=== PATIENT | male | born 1965 | race Caucasian/White ===

== ENCOUNTER 2024-12-05 19:17 | Inpatient (IN) | payer BC, SELFPAY ==
[2024-12-05] VITALS (12 sets, daily range): BP systolic 119–165; BP diastolic 67–102; PULSE 59–78; RESP 12–22; TEMP 37; O2SAT 91–95; BMI 33.9
--- NOTE | 2024-12-05 | IR_ITS ---
APPROVED REPORT Patient Location: Outpatient PROCEDURES Left heart catheterization Left ventriculogram Selective coronary angiogram Drug-eluting stent deployment to the mid LAD INDICATION Acute anterior ST elevation myocardial infarction, Coronary artery disease Informed consent was obtained prior to the procedure. COMPLICATIONS none Estimated Blood Loss: less than 10ml TECHNIQUE One percent lidocaine used to anesthetize the right anterior aspect of the wrist. The right radial artery was accessed via the Seldinger technique. A 6 [place] sheath was placed in the right radial artery. 2.5 mg of Verapamil, 800 mcg of nitroglycerin, 1mg Lidocaine and 5000 U Heparin were given through the arterial sheath. JL 3 guide catheter was advanced to the proximal radial artery however the wire would not pass due to tortuosity. Retrograde angiography demonstrated significant tortuosity in the vessel making traversing the tortuosity and possible. Because of this 1% lidocaine was used anesthetize right groin the right femoral artery 6 via Salinger technique. A 6 [place] sheath is placed in the right femoral artery. A JL 4 guide catheter was placed in left main artery and angiography demonstrated an occluded mid LAD. A choice floppy wire was placed distally and a 2.25 x 34 mm Evaristo frontier stent was deployed at 20 tesfaye reducing the stenosis to 0%. A 2.5 x 15 mm noncompliant balloon was advanced to the proximal portion of the stent and deployed at 20 tesfaye to post dilate. The balloon was then advanced to half the length and then deployed at 20 tesfaye to further post dilate. REJI 0 flow was present at the beginning the procedure with REJI-3 flow at the end of procedure. Following this a JR4 catheter was used to perform right coronary angiography as well as left heart catheterization and left ventriculogram. At the end of the procedure the apparatus was removed the groin is reprepped closure change sheath was removed and hemostasis was achieved using Perclose device patient was transferred to the postop putting in stable condition ANGIOGRAPHIC RESULTS The left main artery Normal The left anterior descending artery Has proximal tendon 20% stenosis and occluded at mid vessel following the revascularization the LAD was widely patent into the apex. First diagonal artery is medium in size and has an ostial proximal 50 to 60% stenosis The circumflex artery co-dominant with proximal 20% stenoses with additional 20% stenosis in the first and second obtuse marginal The right coronary artery Is codominant has diffuse mild to moderate vascular ectasia with no stenosis greater than 10 to 20% The WHITNEY ventriculogram reveals Dilated ventricle mid anterior apical hypokinesis estimate ejection fraction 35 to 40% The left ventricular end-diastolic pressure 15 mmHg IMPRESSION Acute anterior ST elevation myocardial infarction above the mid LAD with successful stenting reducing lesion to 0% with 1 drug-eluting stent Dilated ventricle with regional wall motion abnormality Normal LVEDP PLAN 1. Brilinta and aspirin 2. Start Entresto followed by carvedilol 3. Start high intensity statin with a goal LDL less than 55 4. Supportive care 5. Continuous telemetry of the next 48 hours 6. Official echocardiogram Sunday Electronically signed by : Shekhar Luu MD 12/05/2024 19:25:28
--- NOTE | 2024-12-05 19:50 | PC.NURSE ---
Patient arrived on unit [address]
[2024-12-05 21:46] LABS: Basophils # 0.1 K/mm3 (0-0.2); Basophils % 0.5 % (0.1-2.0); Eosinophils % 0.2 % (0.1-12.0); Hematocrit 40.2 % (42.0-52.0); Hemoglobin 13.1 g/dL (14.1-18.0); Lymphocytes # 1.4 K/mm3 (0.7-4.5); Lymphocytes % 10.7 % (10-50); Mean Corpuscular HGB Conc 32.6 g/dL (31.8-35.4); Mean Corpuscular Volume 88.9 fl (80-94); Mean Platelet Volume 10.7 fl (7.4-10.4); Monocytes # 0.5 K/mm3 (0.1-1.0); Monocytes % 4.1 % (1.7-9.3); Neutrophils # 10.7 K/mm3 (1.8-7.8); Neutrophils % 83.7 % (37.0-80.0); Platelet Count 266 K/mm3 (142-424); Red Blood Count 4.52 M/mm3 (4.60-6.20); Red Cell Distribution Width 14.5 % (11.5-17.5); White Blood Count 12.8 K/mm3 (4.8-10.8)
[2024-12-05] MEDS: ATORVASTATIN 40MG TABLET 40 MG PO (21:47)
[2024-12-05] MEDS: humaLOG 100 UNITS/ML 10ML VIAL (SSI) SQ (21:47)
[2024-12-05] MEDS: PANTOPRAZOLE 40MG TABLET 40 MG PO (21:47)
[2024-12-05 22:02] LABS: Chloride 102 mmol/L (98-107); Sodium 136 mmol/L (136-145)
[2024-12-05 22:03] LABS: Potassium 4.3 mmoL/L (3.5-5.1)
[2024-12-05 22:05] LABS: Blood Urea Nitrogen 15 mg/dl (9-20); Creatinine Clearance Estimated 206 mL/min (50-200); Estimated Glomerular Filt Rate 139 ml/min (>60); GFR (African American) 168 ML/MIN (>60)
[2024-12-05 22:06] LABS: Anion Gap 8.3 mEq/L (5-15); Calcium 8.8 mg/dl (8.4-10.2); Carbon Dioxide 30 mmol/L (22.0-30.0); Glucose 228 mg/dl (74-100)
--- NOTE | 2024-12-05 22:55 | P.HP_ITS ---
History of Present Illness *Admission Date: 12/05/24 *Reason for visit:: Chest pain/STEMI *History of present illness: This is a 59-year-old male with past medical history of hypertension and diabetes who presented as a transfer from [facility] for STEMI. Patient reported midsternal chest pain that started while he was walking through [facility]. States that he went home and had brief relief in pain with sudden increase in pain which brought him to the emergency department at [facility]. He reports a midsternal pressure in his chest that was nonradiating. States he has had episode of this previously that self abated. Does not have a history of any cardiac stents. Has been compliant with his home pioglitazone, metoprolol and amlodipine He underwent heart catheterization and underwent successful stenting of the mid LAD with 1 EVELYNE. Post cath, stable with reduction in pain to a 1 out of 10. He is admitted post cath for optimization. [facility] Disclaimer: The information contained in this section may have been updated after the patient was seen, as this information can be updated by other users. Medical History (Updated 12/05/24 @ 23:06 by EMIL Baeza) Diabetes type 2 Hypertension Surgical History (Updated 12/05/24 @ 20:35 by Misty Castelan RN) History of shoulder surgery History of hernia repair History of cholecystectomy Social History (Updated 12/05/24 @ 23:08 by EMIL Baeza) Smoking Status: Current every day smoker tobacco type: cigarettes packs per day: 1 years smoked: 7 alcohol intake: never current occupational status: employed Travel in the last 8 weeks: None Contact w/someone who lives/traveled outside [place] past 30 days?: No Exposure to someone with infectious disease in past 14 days?: No Do you have a fever (greater than 100.4 F or 38 C)?: No Have you tested positive for COVID-19: No Exposed to someone with COVID-19 in past 14 days?: No Do you have a sore throat?: No Do you have a cough?: No Do you have any weakness?: No Are you experiencing any nausea/vomitting?: No Do you have any diarrhea?: No Are you experiencing any unusual bleeding?: No Do you have any muscle aches/pain?: No Do you have any abdominal pain?: No Are you experiencing loss of taste or smell?: No Other Medical History Have you received the Flu Vaccine for this season: No Have you received the Pneumonia Vaccine: No Review of Systems Review of Systems Review of systems:: pertinent systems reviewed and negative unless documented below Review of systems (narrative): Negative except for HPI Meds Home Medications and Allergies Home Medications ?Medication ?Instructions ?Recorded ?Confirmed ?Type amlodipine 5 mg tablet 5 mg PO DAILY 12/05/24 12/06/24 History metoprolol tartrate 50 mg tablet 50 mg PO BID 12/05/24 12/06/24 History omeprazole 40 mg capsule,delayed 40 mg PO DAILY 12/05/24 12/06/24 History release pioglitazone 15 mg tablet 15 mg PO DAILYDM 12/05/24 12/06/24 History trazodone 50 mg tablet 100 mg PO HS 12/05/24 12/06/24 History New Prescriptions to Start Prescriptions: Allergies Allergy/AdvReac Type Severity Reaction Status Date / Time No Known Allergies Allergy Verified 12/05/24 18:16 Exam Data for Last 24 hours Vital signs and Labs for Last 24 Hours: Temp Pulse Resp BP Pulse Ox O2 Del Method 98.6 F 78 18 165/102 H 94 L Room Air 12/05/24 19:23 12/05/24 22:25 12/05/24 22:25 12/05/24 22:25 12/05/24 22:25 12/05/24 22:43 Laboratory Results - last 24 hr 12/05/24 21:35: WBC 12.8 H, RBC 4.52 L, Hgb 13.1 L, Hct 40.2 L, MCV 88.9, MCH 29.0, MCHC 32.6, RDW 14.5, Plt Count 266, MPV 10.7 H, Neut % (Auto) 83.7 H, Lymph % (Auto) 10.7, [place] % (Auto) 4.1, Eos % (Auto) 0.2, Baso % (Auto) 0.5, Neut # (Auto) 10.7 H, Lymph # (Auto) 1.4, [place] # (Auto) 0.5, Eos # (Auto) 0.0, Baso # (Auto) 0.1, Sodium 136, Potassium 4.3, Chloride 102, Carbon Dioxide 30, Anion Gap 8.3, BUN 15, Creatinine 0.60 L, Estimated Creat Clear 206, Estimated GFR 139, Est GFR ( Amer) 168, Glucose 228 H, Calcium 8.8 I & O for Last 24 hours: Intake & Output 12/02/24 12/03/24 12/04/24 12/05/24 23:59 23:59 23:59 23:59 Output Total 1200 / 1200 Balance -1200 / -1200 Weight 107.275 kg Constitutional Constitutional: no acute distress *Routine HEENT Exam Head: Present normocephalic Eye: Present EOMI and PERRL ENT: Present mucous membranes moist *Routine Neck Exam Neck: Present supple; Absent lymphadenopathy *Routine Respiratory Exam Respiratory: Present CTA bilaterally *Routine Cardiovascular Exam Cardiovascular: Present RRR *Routine Abdominal Exam Abdominal: Present soft and normoactive bowel sounds; Absent tenderness *Routine Rectal Exam Rectal:: deferred *Routine Genitalia Exam Genitalia:: deferred *Routine Extremities Exam Extremities: Absent cyanosis, clubbing or edema *Routine Skin Exam Skin: Present warm; Absent rash Comments: Right groin cath site without bleeding *Routine Neurological Exam Neurological: Present alert and oriented X3 Assessment and Plan *Assessment and plan (1) CAD (coronary artery disease): Status: Acute Category: Medical Code(s): I25.10 - Atherosclerotic heart disease of [place] coronary artery without angina pectoris (2) Diabetes: Status: Acute Category: Medical Code(s): E11.9 - Type 2 diabetes mellitus without complications Plan Presented as transfer from [facility] due to chest pain and STEMI. Case was discussed with cardiology, request admission for 48-hour management after cath. Medicine agreed to admit. #CAD #STEMI Underwent successful PCI with EVELYNE x 1 to LAD Continue Brilinta and aspirin Start Entresto followed by carvedilol. Patient on metoprolol at this time so we will continue metoprolol and verify with cardiology Obtain echocardiogram on Sunday morning Monitor cath site for bleeding Initiate high statin medication, lipid panel in a.m. #DM 2 Continue sliding scale insulin in the acute phase #Hypertension Continue home medications
[2024-12-06] VITALS (31 sets, daily range): BP systolic 131–173; BP diastolic 71–96; PULSE 57–94; RESP 13–24; TEMP 36.6–37; O2SAT 90–97
--- NOTE | 2024-12-06 01:55 | ECG_ITS ---
APPROVED REPORT Exam: Resting ECG HR:67 bpm ECG Measurements Heart Rate 67 AXES MI 160 P 51 QRSd 93 QRS 76 QT 382 T 29 QTc 397 Conclusion SINUS RHYTHM LOW QRS VOLTAGE IN PRECORDIAL LEADS [QRS DEFLECTION < 1.0 mV IN CHEST LEADS] MARKED ST ELEVATION, CONSIDER ANTERIOR INJURY [MARKED ST ELEVATION W/O NORMALLY INFLECTED T-WAVE IN V2-V5] ACUTE CO UNCONFIRMED REPORT Electronically signed by : Jong Mixon MD 12/06/2024 09:54:58
[2024-12-06] MEDS: HEPARIN SODIUM 5,000 UNIT/ML VIAL 10700 UNIT IV (02:16)
--- NOTE | 2024-12-06 02:19 | IR_ITS ---
APPROVED REPORT Patient Location: Inpatient PROCEDURES Selective coronary angiogram Mechanical thrombectomy to the mid LAD Drug-eluting stent deployment to the mid LAD INDICATION Acute anterior ST elevation myocardial infarction thrombosis Informed consent was obtained prior to the procedure. COMPLICATIONS none Estimated Blood Loss: less than 10ml TECHNIQUE 1% lidocaine used anesthetize right groin the right femoral artery was accessed via the central technique and a 6 [place] sheath is placed in the right femoral artery. A JL 4 guide catheter was used to intubate the left main artery followed by Choice PT extra-support wire placed distally into the LAD. Angiography demonstrated the vessel was thrombosed at mid stent. A penumbra mechanical thrombectomy catheter was advanced and used to aspirate the thrombus restoring REJI-3 flow. Intravascular ultrasound probe was advanced which demonstrated there was slight undersizing in the mid stent which was mild. A 2.5 x 20 mm noncompliant balloon was deployed at 24 tesfaye in the proximal and mid segment. Intravascular ultrasound probe was readvanced which demonstrated there was improvement yet still slight undersizing with a calcified eccentric plaque. A 3 mm x 12 mm Evaristo frontier stent was placed proximal to the 2.5 mm stent and deployed at 20 tesfaye. The balloon was advanced to full length and deployed at 20 tesfaye and then a half length and deployed again at 20 tesfaye. Repeat intravascular ultrasound demonstrated wide patency and expansion of the stent. At this point the apparatus was removed the groin is reprepped closure change sheath was removed and hemostasis was achieved using Perclose device patient was transferred to the postop putting in stable condition ANGIOGRAPHIC RESULTS The left anterior descending artery Thrombosed and mid stent IMPRESSION Acute stent thrombosis in the mid LAD Successful stenting proximal to the for stent with larger stent making smoother transition and then post dilating the previously placed stent with a high-pressure 3 mm balloon PLAN 1. Discontinue Brilinta. Patient was loaded with Effient in the Batch Room Technician 2. Effient 10 mg daily combined with aspirin 81 mg daily 3. Continue supportive care 4. Treatment of hypertension with Entresto and beta-blockers Electronically signed by : Shekhar Luu MD 12/06/2024 03:21:37
[2024-12-06] MEDS: MORPHINE 2MG/ML SYRINGE 1 MG IV (02:20)
[2024-12-06] MEDS: diphenhydrAMINE 50MG/ML VIAL 50 MG IV (02:59)
[2024-12-06] MEDS: MIDAZOLAM HCL 1MG/ML 5ML VIAL 1 MG IV (03:00)
[2024-12-06] MEDS: HEPARIN 1,000 UNITS/500ML NS (CATH LAB) 3000 UNIT IV (03:00)
[2024-12-06] MEDS: LIDOCAINE 1% 10ML MDV 20 ML IJ (03:00)
[2024-12-06] MEDS: FENTANYL 100MCG/2ML VIAL 50 MCG IV (03:00)
[2024-12-06] MEDS: 0.9 % SODIUM CHLORIDE 500 ML 25 ML IV (03:02)
[2024-12-06] MEDS: PRASUGREL 10MG TAB 60 MG PO (03:10)
[2024-12-06] MEDS: HEPARIN 1,000 UNITS/ML 10ML VIAL (CATH LAB) 10000 UNIT IV (03:22)
[2024-12-06] MEDS: IOPAMIDOL-370 (76%);100ML BOTTLE 90 ML IV (03:36)
[2024-12-06 03:40] LABS: CATHL Activated Clotting Time 206 SEC (74-125)
--- NOTE | 2024-12-06 04:42 | PC.NURSE ---
0150 Pt called out stating he was having midsternal chest pain rating it 3/10. Pt telemetry shows change to ST elevation. RT called for STAT EKG. Sonny Chauhan notified and stated she would come to bedside. [address] elevation with acute NV. Sonny Chauhan notified Catherine Luu and he stated to call in cath team and give 100mg/kg of heparin. House notified to call in cath team. Pt taken down to laboratory worker @ 0225 Pt received 1 stent to LAD. Pt back to room @ [id number]
[2024-12-06] MEDS: humaLOG 100 UNITS/ML 10ML VIAL (SSI) SUBCUT ×2 (06:28→11:00)
--- NOTE | 2024-12-06 06:45 | PC.NURSE ---
0400 Pt stated to SRNA that she was nauseous when attempting to set up bath for pt. Sonny Wadsworthis notified and Juni SPRINGER ordered PRN. Medication pulled and when attempting to give to pt, pt states she is not taking any medication at this time. Pt notified medication is IV and it will help with nausea. Pt continues to refuse stating I am not taking any medication from you all and I am not taking a bath. Pt continues to be resistant to care this AM. Call light within reach.
[2024-12-06 07:24] LABS: Chol/HDL Ratio 4.6 (1-3.5); Cholesterol 166 mg/dl (140-200); HDL Cholesterol 36 mg/dl (40-60); Magnesium 1.5 mg/dl (1.6-2.3); Phosphorous 2.1 mg/dl (2.5-4.5); Triglycerides 137 mg/dl (30-150); VLDL Cholesterol 27 mg/dL (0-40)
[2024-12-06 07:35] LABS: Direct LDL Cholesterol 97.32 mg/dL (100-129)
[2024-12-06 08:01] LABS: Hemoglobin A1C 8.5 % (4.0-6.0)
[2024-12-06] MEDS: ASPIRIN EC 81MG TABLET 81 MG PO (08:59)
[2024-12-06] MEDS: PRASUGREL 10MG TAB 10 MG PO (08:59)
[2024-12-06] MEDS: AMLODIPINE 5MG TABLET 5 MG PO (08:59)
[2024-12-06] MEDS: METOPROLOL TARTRATE 50MG TABLET 50 MG PO ×2 (08:59→20:33)
[2024-12-06] MEDS: SACUBITRIL/VALSARTAN 24-26MG TABLET 1 EACH PO ×2 (08:59→20:32)
--- NOTE | 2024-12-06 09:07 | PC.NURSE ---
Incentive spirometer brought to pt's bedside. Pt and pt's spouse educated on it's use and purpose. Pt is sleepy at this time, but was able to show return demonstration of IS use. IS at best, 1000cc's. IS placed at bedside and pt encouraged to do it while awake during every commercial break 5-10 times. Pt and pt's both verbalized understanding
--- NOTE | 2024-12-06 09:09 | PC.NURSE ---
This RN ordered IV mag d/t magnesium level of 1.5 per electrolyte replacement protocol
[2024-12-06] MEDS: MAGNESIUM SULFATE IN WATER 2 GM/50 ML PIGGYBACK IV ×2 (09:20→10:13)
--- NOTE | 2024-12-06 10:36 | HMH.PHAINT1 ---
Pharmacy Intervention Comments: MEDICATION RECONCILIATION COMPLETE USING EXTERNAL PHARMACY FILL HISTORY.
[2024-12-06 11:09] LABS: POC Glucose,Bedside 188 (70-110)
--- NOTE | 2024-12-06 11:25 | P.PN_ITS ---
Subjective *Date: 12/06/24 *Time: 12:03 Interval history: Patient is chest pain-free this morning. Stable on room air. No nausea or vomiting. Overall feels better. Family at bedside. No further ST elevations or V. tach events on telemetry after repeat heart cath. Occasional PVCs Medical Exam Vital signs and Labs for Last 24 Hours: Vital Signs Temp Pulse Pulse Resp BP Pulse Ox O2 Del Method 12/06/24 10:35 72 18 146/89 H 93 L Room Air 12/06/24 10:00 70 18 140/87 95 Room Air 12/06/24 09:35 72 18 139/83 93 L Room Air 12/06/24 09:00 Room Air 12/06/24 09:00 81 17 152/96 H 92 L Room Air 12/06/24 08:35 67 17 146/87 H 97 Room Air 12/06/24 08:00 70 12/06/24 08:00 16 95 Room Air 12/06/24 08:00 98 F 67 21 143/87 H 95 Room Air 12/06/24 07:35 61 20 148/89 H 93 L Room Air 12/06/24 06:35 77 13 140/83 92 L Room Air 12/06/24 06:32 Room Air 12/06/24 06:10 63 12/06/24 06:05 80 18 146/85 H 96 Room Air 12/06/24 05:35 72 15 148/82 H 95 Room Air 12/06/24 05:05 61 15 131/81 93 L Room Air 12/06/24 04:42 Room Air 12/06/24 04:35 82 17 137/85 97 Room Air 12/06/24 04:20 75 22 134/89 93 L Room Air 12/06/24 04:05 98.6 F 68 21 138/88 92 L 12/06/24 03:50 73 24 149/82 H 93 L Room Air 12/06/24 03:35 81 24 135/85 91 L Room Air 12/06/24 03:30 94 H 20 159/91 H 94 L Room Air 12/06/24 03:25 83 20 161/94 H 93 L Room Air 12/06/24 03:23 88 20 161/94 H 93 L Room Air 12/06/24 03:20 81 20 151/91 H 91 L Room Air 12/06/24 02:25 93 L Room Air 12/06/24 02:25 86 22 152/84 H 91 L Room Air 12/06/24 01:25 70 16 173/88 H 92 L Room Air 12/06/24 00:58 Room Air 12/06/24 00:25 98.4 F 67 17 147/90 H 94 L Room Air 12/05/24 23:34 72 12/05/24 23:25 62 13 146/93 H 93 L Room Air 12/05/24 22:43 Room Air 12/05/24 22:25 78 18 165/102 H 94 L Room Air 12/05/24 21:55 66 15 147/89 H 93 L Room Air 12/05/24 21:25 64 14 145/87 H 94 L Room Air 12/05/24 20:55 63 16 131/79 93 L Room Air 12/05/24 20:53 Room Air 12/05/24 20:25 67 18 123/79 93 L Room Air 12/05/24 20:11 67 12/05/24 20:10 69 120/75 91 L Room Air 12/05/24 19:55 62 20 129/75 94 L Room Air 12/05/24 19:40 59 L 22 126/77 95 Room Air 12/05/24 19:23 93 L Room Air 12/05/24 19:23 98.6 F 63 12 119/67 95 Room Air Intake and Output 12/05/24 12/06/24 12/06/24 23:59 07:59 15:59 Intake Total 640 / 640 Output Total 1200 / 1200 1130 / 1705 575 / 1705 Balance -1200 / -1200 -1130 / -1065 65 / -1065 Intake: Intake, Oral Amount 640 / 640 Output: Output, Urine Amount 1200 / 1200 1130 / 1705 575 / 1705 Other: Number of Unmeasured Voids 0 0 Weight 107.275 kg Laboratory Results - last 24 hr 12/05/24 21:35: WBC 12.8 H, RBC 4.52 L, Hgb 13.1 L, Hct 40.2 L, MCV 88.9, MCH 29.0, MCHC 32.6, RDW 14.5, Plt Count 266, MPV 10.7 H, Neut % (Auto) 83.7 H, Lymph % (Auto) 10.7, [place] % (Auto) 4.1, Eos % (Auto) 0.2, Baso % (Auto) 0.5, Neut # (Auto) 10.7 H, Lymph # (Auto) 1.4, [place] # (Auto) 0.5, Eos # (Auto) 0.0, Baso # (Auto) 0.1, Sodium 136, Potassium 4.3, Chloride 102, Carbon Dioxide 30, Anion Gap 8.3, BUN 15, Creatinine 0.60 L, Estimated Creat Clear 206, Estimated GFR 139, Est GFR ( Amer) 168, Glucose 228 H, Calcium 8.8 12/06/24 02:53: Activated Clotting Time 206 H* 12/06/24 06:25: Hemoglobin A1c 8.5 H, Phosphorus 2.1 L, Magnesium 1.5 L, Triglycerides 137, Cholesterol 166, LDL Cholesterol Direct 97.32 L, VLDL Cholesterol 27, HDL Cholesterol 36 L, Cholesterol/HDL Ratio 4.6 H 12/06/24 10:56: POC Glucose 188 H I & O for Labs for Last 24 Hours: Intake & Output 12/03/24 12/04/24 12/05/24 12/06/24 23:59 23:59 23:59 23:59 Intake Total 640 / 640 Output Total 1200 / 1200 1705 / 1705 Balance -1200 / -1200 -1065 / -1065 Weight 107.275 kg Constitutional: Present no acute distress, obese and cooperative Head: Present atraumatic and normocephalic ENT: Present normal exam Respiratory: Present normal respiratory effort; Absent rhonchi, wheezes or crackles Cardiac: Present Reg Rate and Rhythm GI: Present soft and normal bowel sounds; Absent distention or tenderness Extremities: Present normal inspection and full ROM Skin: Present intact; Absent erythema Neuro: Present Grossly Intact, alert, awake, oriented x 3 and moves all extremities Assessment and Plan *Assessment and plan (1) STEMI (ST elevation myocardial infarction): Status: Acute Category: Medical Code(s): I21.3 - ST elevation (STEMI) myocardial infarction of unspecified site (2) CAD (coronary artery disease): Status: Acute Category: Medical Code(s): I25.10 - Atherosclerotic heart disease of [place] coronary artery without angina pectoris (3) Diabetes: Status: Acute Category: Medical Code(s): E11.9 - Type 2 diabetes mellitus without complications (4) Hypertension: Status: Acute Category: Medical Code(s): I10 - Essential (primary) hypertension (5) Obesity (BMI 30.0-34.9): Status: Chronic Category: Medical Code(s): E66.811 - Obesity, class 1 Plan Presented as transfer from [facility] due to chest pain and STEMI. Case was discussed with cardiology, request admission for 48-hour management after cath. Medicine agreed to admit. #CAD #STEMI # Hypertension Underwent successful PCI with EVELYNE x 1 to LAD. Necessitated repeat heart cath as patient was found to have in-stent thrombosis. No further events since second procedure Initiate Jardiance 25 mg daily for diabetes and CHF. -Discussed case with cardiology this morning, continue to monitor on telemetry. Need to monitor for at least 48 hours. Echo Sunday. Will consider further goal-directed therapy at that -Continue DAPT with aspirin 81 mg daily and prasugrel 10 mg daily -LDL 97, goal less than 55. Continue Lipitor 40 mg nightly. Consider increasing to 80 mg prior to discharge -Initiated on Entresto 24/26 mg twice daily. Blood pressure with systolics above 140s, will consider increasing in the next 24 hours if remains elevated after this evening's dose. -Continue metoprolol tartrate 50 mg twice daily. Heart rate well-controlled -Continue home amlodipine 5 mg daily - Obtain echocardiogram on Sunday #DM 2 Continue sliding scale insulin with fingersticks ACHS. Initiate Jardiance 25 mg daily today. A1c elevated 8.5, goal less than 7 - Morning glucose 228 -Kidney function normal with BUN 15, creatinine 0.6, electrolytes stable with potassium 4.3, magnesium 1.5. Replace per protocol. Repeat CBC, CMP, magnesium ordered for the morning Obesity complicates all aspects of his care Full code Heparinized in Marketing Production Specialist, DAPT therapy Diabetic and cardiac diet
[2024-12-06] MEDS: EMPAGLIFLOZIN 25MG TABLET 25 MG PO (12:16)
--- NOTE | 2024-12-06 13:13 | PC.NURSE ---
requested new meal tray for pt, not satisfied with what was brought to him
[2024-12-06 16:12] LABS: POC Glucose,Bedside 142 (70-110)
--- NOTE | 2024-12-06 18:07 | PC.NURSE ---
171- pt had 9 beat run of vtach. This RN went in to check on pt and he was asymptomatic, stating he feels much better than yesterday . Event recorded and printed, MD Recinos made aware of this and of pt's frequent PVC's. NNO
[2024-12-06 20:09] LABS: POC Glucose,Bedside 141 (70-110)
[2024-12-06] MEDS: TRAZODONE 50MG TABLET 50 MG PO (20:33)
[2024-12-06] MEDS: ATORVASTATIN 40MG TABLET 40 MG PO (20:33)
[2024-12-06] MEDS: PANTOPRAZOLE 40MG TABLET 40 MG PO (20:33)
[2024-12-07] VITALS (8 sets, daily range): BP systolic 117–144; BP diastolic 68–85; PULSE 64–84; RESP 14–22; TEMP 36.6–36.9; O2SAT 91–96; BMI 31.9
[2024-12-07 06:29] LABS: POC Glucose,Bedside 117 (70-110)
--- NOTE | 2024-12-07 06:44 | PC.NURSE ---
Pt has not voiced any complaints to staff throughout shift. NSR, No dysrhythmias noted to telemetry during shift. Pt has been ambulating to BR independently, tolerating well. at bedside. Call light within reach.
[2024-12-07 07:55] LABS: Basophils # 0.1 K/mm3 (0-0.2); Basophils % 0.6 % (0.1-2.0); Eosinophils # 0.2 K/mm3 (0.0-0.4); Eosinophils % 1.6 % (0.1-12.0); Hematocrit 43.5 % (42.0-52.0); Hemoglobin 14.4 g/dL (14.1-18.0); Lymphocytes # 2.1 K/mm3 (0.7-4.5); Lymphocytes % 16.2 % (10-50); Mean Corpuscular HGB Conc 33.1 g/dL (31.8-35.4); Mean Corpuscular Hemoglobin 29.1 pg (27.0-31.2); Mean Corpuscular Volume 88.1 fl (80-94); Monocytes # 1.3 K/mm3 (0.1-1.0); Monocytes % 10.1 % (1.7-9.3); Neutrophils # 9.1 K/mm3 (1.8-7.8); Neutrophils % 71.1 % (37.0-80.0); Platelet Count 267 K/mm3 (142-424); Red Blood Count 4.94 M/mm3 (4.60-6.20); Red Cell Distribution Width 14.5 % (11.5-17.5); White Blood Count 12.7 K/mm3 (4.8-10.8)
[2024-12-07 08:06] LABS: Chloride 103 mmol/L (98-107); Potassium 3.9 mmoL/L (3.5-5.1); Sodium 138 mmol/L (136-145)
[2024-12-07 08:08] LABS: Blood Urea Nitrogen 14 mg/dl (9-20); Creatinine Clearance Estimated 146 mL/min (50-200); Estimated Glomerular Filt Rate 100 ml/min (>60); GFR (African American) 121 ML/MIN (>60)
[2024-12-07 08:09] LABS: Alanine Aminotransferase 23 U/L (12-78); Albumin/Globulin Ratio 1.3 (1.1-1.8); Alkaline Phosphatase 123 U/L (38-126); Anion Gap 14.9 mEq/L (5-15); Aspartate Amino Transferase 77 U/L (17-59); Bilirubin,Total 2.2 mg/dl (0.2-1.3); Carbon Dioxide 24 mmol/L (22.0-30.0); Globulin 3.2 g/dL (1.3-3.2); Glucose 115 mg/dl (74-100); Magnesium 2.1 mg/dl (1.6-2.3); Phosphorous 2.9 mg/dl (2.5-4.5); Total Protein,Serum 7.2 g/dl (6.3-8.2)
[2024-12-07] MEDS: METOPROLOL TARTRATE 50MG TABLET 50 MG PO ×2 (09:20→20:55)
[2024-12-07] MEDS: ASPIRIN EC 81MG TABLET 81 MG PO (09:20)
[2024-12-07] MEDS: AMLODIPINE 5MG TABLET 5 MG PO (09:20)
[2024-12-07] MEDS: EMPAGLIFLOZIN 25MG TABLET 25 MG PO (09:20)
[2024-12-07] MEDS: PRASUGREL 10MG TAB 10 MG PO (09:20)
[2024-12-07] MEDS: SACUBITRIL/VALSARTAN 24-26MG TABLET 1 EACH PO ×2 (09:20→20:54)
--- NOTE | 2024-12-07 11:14 | EXP.ACUTE.PN ---
Subjective *Date: 12/07/24 *Time: 11:14 Interval history: Chest pain-free this morning. Stable on room air. No further adverse events on telemetry. Blood pressure better controlled 126/77. Medical Exam Vital signs and Labs for Last 24 Hours: Vital Signs Temp Pulse Pulse Resp BP Pulse Ox O2 Del Method 12/07/24 09:00 Room Air 12/07/24 08:00 75 Room Air 12/07/24 06:39 Room Air 12/07/24 06:00 80 21 126/77 94 L Room Air 12/07/24 05:00 Room Air 12/07/24 04:00 98.4 F 74 22 131/70 94 L Room Air 12/07/24 04:00 80 12/07/24 03:00 Room Air 12/07/24 02:00 64 22 120/71 91 L Room Air 12/07/24 01:00 Room Air 12/07/24 00:00 70 12/07/24 00:00 67 19 117/70 93 L Room Air 12/06/24 22:49 Room Air 12/06/24 22:00 67 23 137/89 90 L Room Air 12/06/24 21:00 Room Air 12/06/24 20:00 98.2 F 57 L 22 148/71 H 92 L Room Air 12/06/24 20:00 93 L Room Air 12/06/24 20:00 80 12/06/24 18:55 Room Air 12/06/24 18:00 69 20 149/88 H 93 L Room Air 12/06/24 17:00 Room Air 12/06/24 16:00 60 12/06/24 16:00 66 19 158/87 H 94 L Room Air 12/06/24 15:00 60 19 149/91 H 93 L Room Air 12/06/24 15:00 Room Air 12/06/24 14:00 76 18 150/93 H 92 L Room Air 12/06/24 13:00 Room Air 12/06/24 12:00 70 12/06/24 12:00 97.9 F 78 17 132/83 92 L Room Air Intake and Output 12/06/24 12/07/24 12/07/24 23:59 07:59 15:59 Intake Total 120 / 1720 Output Total 875 / 4380 550 / 550 0 / 550 Balance -755 / -2660 -550 / -550 0 / -550 Intake: Intake, Oral Amount 120 / 1720 Output: Output, Urine Amount 875 / 4380 550 / 550 0 / 550 Other: Number of Unmeasured Voids 1 Number of Bowel Movements 1 Weight 101.196 kg Patient Weight 12/07/24 23:59 Weight 101.196 kg Laboratory Results - last 24 hr 12/06/24 16:04: POC Glucose 142 H 12/06/24 20:03: POC Glucose 141 H 12/07/24 06:20: WBC 12.7 H, RBC 4.94, Hgb 14.4, Hct 43.5, MCV 88.1, MCH 29.1, MCHC 33.1, RDW 14.5, Plt Count 267, MPV 11.0 H, Neut % (Auto) 71.1, Lymph % (Auto) 16.2, [place] % (Auto) 10.1 H, Eos % (Auto) 1.6, Baso % (Auto) 0.6, Neut # (Auto) 9.1 H, Lymph # (Auto) 2.1, [place] # (Auto) 1.3 H, Eos # (Auto) 0.2, Baso # (Auto) 0.1, Sodium 138, Potassium 3.9, Chloride 103, Carbon Dioxide 24, Anion Gap 14.9, BUN 14, Creatinine 0.80 D, Estimated Creat Clear 146, Estimated GFR 100, Est GFR ( Amer) 121 D, Glucose 115 H D, Calcium 9.0, Phosphorus 2.9 D, Magnesium 2.1 D, Total Bilirubin 2.2 H, AST 77 H, ALT 23, Alkaline Phosphatase 123, Total Protein 7.2, Albumin 4.0, Globulin 3.2, Albumin/Globulin Ratio 1.3 12/07/24 06:22: POC Glucose 117 H I & O for Labs for Last 24 Hours: Intake & Output 12/04/24 12/05/24 12/06/24 12/07/24 23:59 23:59 23:59 23:59 Intake Total 1720 / 1720 Output Total 1200 / 1200 4180 / 4380 550 / 550 Balance -1200 / -1200 -2460 / -2660 -550 / -550 Weight 107.275 kg 101.196 kg Constitutional: Present no acute distress, obese and cooperative Head: Present atraumatic and normocephalic ENT: Present normal exam Respiratory: Present normal respiratory effort; Absent rhonchi, wheezes or crackles Cardiac: Present Reg Rate and Rhythm GI: Present soft and normal bowel sounds; Absent distention or tenderness Extremities: Present normal inspection and full ROM Skin: Present intact; Absent erythema Neuro: Present Grossly Intact, alert, awake, oriented x 3 and moves all extremities Assessment and Plan *Assessment and plan (1) STEMI (ST elevation myocardial infarction): Status: Acute Category: Medical Code(s): I21.3 - ST elevation (STEMI) myocardial infarction of unspecified site (2) CAD (coronary artery disease): Status: Acute Category: Medical Code(s): I25.10 - Atherosclerotic heart disease of [place] coronary artery without angina pectoris (3) Diabetes: Status: Acute Category: Medical Code(s): E11.9 - Type 2 diabetes mellitus without complications (4) Hypertension: Status: Acute Category: Medical Code(s): I10 - Essential (primary) hypertension (5) Obesity (BMI 30.0-34.9): Status: Chronic Category: Medical Code(s): E66.811 - Obesity, class 1 Plan Presented as transfer from [facility] due to chest pain and STEMI. Case was discussed with cardiology, request admission for 48-hour management after cath. Medicine agreed to admit. #CAD #STEMI # Hypertension Underwent successful PCI with EVELYNE x 1 to LAD. Necessitated repeat heart cath as patient was found to have in-stent thrombosis. No further events since second procedure -Continue Jardiance 25 mg daily for diabetes and CHF. -Discussed case with cardiology this morning, continue to monitor on telemetry. Need to monitor for at least 48 hours. Echo Sunday. Will consider further goal-directed therapy at that -Continue DAPT with aspirin 81 mg daily and prasugrel 10 mg daily -LDL 97, goal less than 55. Continue Lipitor 40 mg nightly. Consider increasing to 80 mg prior to discharge -Initiated on Entresto 24/26 mg twice daily. Blood pressure better today 126/77. Will consider titration tomorrow. -Continue metoprolol tartrate 50 mg twice daily. Heart rate well-controlled -Continue home amlodipine 5 mg daily - Obtain echocardiogram on Sunday #DM 2 Continue sliding scale insulin with fingersticks ACHS. Initiate Jardiance 25 mg daily today. A1c elevated 8.5, goal less than 7 - Morning glucose 115 -Kidney function normal with BUN 14, creatinine 0.8, electrolytes stable with potassium 3.9, magnesium 2.1; Replace per protocol. Repeat CBC, CMP, magnesium ordered for the morning Obesity complicates all aspects of his care Full code Heparinized in [employer], DAPT therapy Diabetic and cardiac diet
[2024-12-07 11:25] LABS: POC Glucose,Bedside 113 (70-110)
--- NOTE | 2024-12-07 16:00 | PC.NURSE ---
pt reports burning with movement in r leg. cath site is unchanged. bruising noted to site. pulses strong and palpable through out groin and leg. pt states it does not burn when he is not moving it. spoke with . he will come see pt shortly
[2024-12-07 16:37] LABS: POC Glucose,Bedside 122 (70-110)
[2024-12-07 20:49] LABS: POC Glucose,Bedside 128 (70-110)
[2024-12-07] MEDS: PANTOPRAZOLE 40MG TABLET 40 MG PO (20:54)
[2024-12-07] MEDS: TRAZODONE 50MG TABLET 50 MG PO (20:54)
[2024-12-07] MEDS: ATORVASTATIN 40MG TABLET 40 MG PO (20:54)
[2024-12-08] VITALS: BP 135/78; PULSE 70; PULSE 74; RESP 14; TEMP 36.4; O2SAT 95
[2024-12-08 04:00] VITALS: BP 133/86; PULSE 80; PULSE 90; RESP 16; TEMP 37; O2SAT 94; BMI 31.8
[2024-12-08 06:45] LABS: POC Glucose,Bedside 138 (70-110)
[2024-12-08 06:54] LABS: Basophils # 0.1 K/mm3 (0-0.2); Basophils % 0.8 % (0.1-2.0); Eosinophils # 0.3 K/mm3 (0.0-0.4); Eosinophils % 2.2 % (0.1-12.0); Hematocrit 44.6 % (42.0-52.0); Hemoglobin 14.9 g/dL (14.1-18.0); Lymphocytes % 16.4 % (10-50); Mean Corpuscular HGB Conc 33.4 g/dL (31.8-35.4); Mean Corpuscular Hemoglobin 29.3 pg (27.0-31.2); Mean Corpuscular Volume 87.6 fl (80-94); Mean Platelet Volume 10.6 fl (7.4-10.4); Monocytes # 1.3 K/mm3 (0.1-1.0); Monocytes % 11.1 % (1.7-9.3); Neutrophils # 8.2 K/mm3 (1.8-7.8); Platelet Count 273 K/mm3 (142-424); Red Blood Count 5.09 M/mm3 (4.60-6.20); Red Cell Distribution Width 14.2 % (11.5-17.5); White Blood Count 11.9 K/mm3 (4.8-10.8)
[2024-12-08 07:02] LABS: Alanine Aminotransferase 24 U/L (12-78); Albumin Level 3.9 g/dl (3.5-5.0); Albumin/Globulin Ratio 1.1 (1.1-1.8); Alkaline Phosphatase 130 U/L (38-126); Anion Gap 15.7 mEq/L (5-15); Aspartate Amino Transferase 47 U/L (17-59); Bilirubin,Total 2.3 mg/dl (0.2-1.3); Blood Urea Nitrogen 18 mg/dl (9-20); Calcium 9.2 mg/dl (8.4-10.2); Carbon Dioxide 23 mmol/L (22.0-30.0); Chloride 101 mmol/L (98-107); Creatinine Clearance Estimated 129 mL/min (50-200); Estimated Glomerular Filt Rate 87 ml/min (>60); GFR (African American) 105 ML/MIN (>60); Globulin 3.5 g/dL (1.3-3.2); Glucose 117 mg/dl (74-100); Potassium 3.7 mmoL/L (3.5-5.1); Sodium 136 mmol/L (136-145); Total Protein,Serum 7.4 g/dl (6.3-8.2)
[2024-12-08 07:29] LABS: Magnesium 1.8 mg/dl (1.6-2.3)
[2024-12-08 08:00] VITALS: BP 142/79; PULSE 89; PULSE 90; RESP 16; TEMP 36.4; O2SAT 95
[2024-12-08] MEDS: EMPAGLIFLOZIN 25MG TABLET 25 MG PO (08:40)
[2024-12-08] MEDS: PRASUGREL 10MG TAB 10 MG PO (08:40)
[2024-12-08] MEDS: AMLODIPINE 5MG TABLET 5 MG PO (08:40)
[2024-12-08] MEDS: METOPROLOL TARTRATE 50MG TABLET 50 MG PO (08:40)
[2024-12-08] MEDS: ASPIRIN EC 81MG TABLET 81 MG PO (08:40)
[2024-12-08] MEDS: SACUBITRIL/VALSARTAN 24-26MG TABLET 1 EACH PO (08:40)
--- NOTE | 2024-12-08 08:52 | EXP.DC.SUM ---
General Admission date:: 12/05/24 Discharge date: 12/08/24 HPI HPI HPI: This is a 59-year-old male with past medical history of hypertension and diabetes who presented as a transfer from [facility] for STEMI. Patient reported midsternal chest pain that started while he was walking through [facility]. States that he went home and had brief relief in pain with sudden increase in pain which brought him to the emergency department at [facility]. He reports a midsternal pressure in his chest that was nonradiating. States he has had episode of this previously that self abated. Does not have a history of any cardiac stents. Has been compliant with his home pioglitazone, metoprolol and amlodipine He underwent heart catheterization and underwent successful stenting of the mid LAD with 1 EVELYNE. Post cath, stable with reduction in pain to a 1 out of 10. He is admitted post cath for optimization. Hospital Course Hospital Course Hospital Course: 59-year-old male who presented as transfer from [facility] due to chest pain and STEMI. Necessitated repeat cath due to in-stent thrombosis within several hours of his first heart cath and stent placement. Was monitored through the weekend. Had no further events. Echo obtained on morning of discharge. Stable to discharge home with further management as an outpatient on goal-directed therapy. Problems addressed as follows: #CAD #STEMI # Hypertension Underwent successful PCI with EVELYNE x 1 to LAD. Necessitated repeat heart cath as patient was found to have in-stent thrombosis. No further events since second procedure. Initiated on goal-directed therapy with prasugrel 10 mg daily, aspirin 81 mg daily, Lipitor 40 mg nightly. Initiated Entresto, titrated up to medium dose. Continue this twice daily. Will continue metoprolol tartrate 50 mg twice daily. Heart rate well-controlled. Discontinuing amlodipine due to titration of Entresto. LDL of 97, goal less than 55. Cardiology assisted with management. Echo obtained morning of discharge. Prelim with questionable mild reduction in EF, but above 45%. Formal read still pending. Stable to discharge home with close follow-up as an outpatient. #DM 2 A1c elevated 8.5. Goal is 7 or less. Patient was initiated on Jardiance 25 mg daily. Will continue at discharge. On morning of discharge, glucose 117. Kidney function normal with BUN 18, creatinine 0.9. Needs repeat A1c in 3 months. Total time spent on discharge 32 minutes in counseling, documentation, chart review, and direct care with patient. Exam Data for Last 24 hours Vital signs and Labs for Last 24 Hours: Temp Pulse Resp BP Pulse Ox O2 Del Method 97.6 F 89 16 142/79 H 95 Room Air 12/08/24 08:00 12/08/24 08:00 12/08/24 08:00 12/08/24 08:00 12/08/24 08:00 12/08/24 08:45 Laboratory Results - last 24 hr 12/07/24 11:18: POC Glucose 113 H 12/07/24 16:30: POC Glucose 122 H 12/07/24 20:41: POC Glucose 128 H 12/08/24 05:26: POC Glucose 138 H 12/08/24 06:03: WBC 11.9 H, RBC 5.09, Hgb 14.9, Hct 44.6, MCV 87.6, MCH 29.3, MCHC 33.4, RDW 14.2, Plt Count 273, MPV 10.6 H, Neut % (Auto) 69.0, Lymph % (Auto) 16.4, [place] % (Auto) 11.1 H, Eos % (Auto) 2.2, Baso % (Auto) 0.8, Neut # (Auto) 8.2 H, Lymph # (Auto) 2.0, [place] # (Auto) 1.3 H, Eos # (Auto) 0.3, Baso # (Auto) 0.1, Sodium 136, Potassium 3.7, Chloride 101, Carbon Dioxide 23, Anion Gap 15.7 H, BUN 18 D, Creatinine 0.90, Estimated Creat Clear 129, Estimated GFR 87, Est GFR ( Amer) 105, Glucose 117 H, Calcium 9.2, Magnesium 1.8 D, Total Bilirubin 2.3 H, AST 47 D, ALT 24, Alkaline Phosphatase 130 H, Total Protein 7.4, Albumin 3.9, Globulin 3.5 H, Albumin/Globulin Ratio 1.1 I & O for Last 24 hours: Intake & Output 12/05/24 12/06/24 12/07/24 12/08/24 23:59 23:59 23:59 23:59 Intake Total 1720 / 1720 1010 / 1130 540 / 540 Output Total 1200 / 1200 4180 / 4380 550 / 550 0 / 0 Balance -1200 / -1200 -2460 / -2660 460 / 580 540 / 540 Weight 107.275 kg 101.196 kg 100.839 kg Constitutional Constitutional: no acute distress, obese and cooperative *Routine HEENT Exam Head: Present normocephalic Eye: Present EOMI and PERRL ENT: Present mucous membranes moist *Routine Neck Exam Neck: Present supple; Absent lymphadenopathy *Routine Respiratory Exam Respiratory: Present CTA bilaterally *Routine Cardiovascular Exam Cardiovascular: Present RRR *Routine Abdominal Exam Abdominal: Present soft and normoactive bowel sounds; Absent tenderness *Routine Rectal Exam Patient deferred: visual exam *Routine Exam Patient deferred: penile exam *Routine Extremities Exam Extremities: Absent cyanosis, clubbing or edema *Routine Skin Exam Skin: Present warm; Absent rash *Routine Neurological Exam Neurological: Present alert, oriented X3 and moving all extremities; Absent altered mental status Results Data Completed and Pending Labs on day of discharge: Labs from last 24 hours 12/08/24 12/08/24 12/07/24 06:03 05:26 20:41 WBC 11.9 H RBC 5.09 Hgb 14.9 Hct 44.6 MCV 87.6 MCH 29.3 MCHC 33.4 RDW 14.2 Plt Count 273 MPV 10.6 H Neut % (Auto) 69.0 Lymph % (Auto) 16.4 [place] % (Auto) 11.1 H Eos % (Auto) 2.2 Baso % (Auto) 0.8 Neut # (Auto) 8.2 H Lymph # (Auto) 2.0 Price # (Auto) 1.3 H Eos # (Auto) 0.3 Baso # (Auto) 0.1 Sodium 136 Potassium 3.7 Chloride 101 Carbon Dioxide 23 Anion Gap 15.7 H BUN 18 D Creatinine 0.90 Estimated Creat Clear 129 Estimated GFR 87 Est GFR ( Amer) 105 Glucose 117 H POC Glucose 138 H 128 H Calcium 9.2 Magnesium 1.8 D Total Bilirubin 2.3 H AST 47 D ALT 24 Alkaline Phosphatase 130 H Total Protein 7.4 Albumin 3.9 Globulin 3.5 H Albumin/Globulin Ratio 1.1 12/07/24 12/07/24 16:30 11:18 WBC RBC Hgb Hct MCV MCH MCHC RDW Plt Count MPV Neut % (Auto) Lymph % (Auto) Price % (Auto) Eos % (Auto) Baso % (Auto) Neut # (Auto) Lymph # (Auto) Price # (Auto) Eos # (Auto) Baso # (Auto) Sodium Potassium Chloride Carbon Dioxide Anion Gap BUN Creatinine Estimated Creat Clear Estimated GFR Est GFR ( Amer) Glucose POC Glucose 122 H 113 H Calcium Magnesium Total Bilirubin AST ALT Alkaline Phosphatase Total Protein Albumin Globulin Albumin/Globulin Ratio DS: Diagnosis Discharge Diagnosis (1) STEMI (ST elevation myocardial infarction): Status: Acute Code(s): I21.3 - ST elevation (STEMI) myocardial infarction of unspecified site (2) CAD (coronary artery disease): Status: Acute Code(s): I25.10 - Atherosclerotic heart disease of [place] coronary artery without angina pectoris (3) Diabetes: Status: Acute Code(s): E11.9 - Type 2 diabetes mellitus without complications (4) Hypertension: Status: Acute Code(s): I10 - Essential (primary) hypertension (5) Obesity (BMI 30.0-34.9): Status: Chronic Code(s): E66.811 - Obesity, class 1 (6) Heart failure with mildly reduced ejection fraction (HFmrEF, 41-49%): Status: Acute Code(s): I50.20 - Unspecified systolic (congestive) heart failure Meds Home Medications and Allergies Home Medications ?Medication ?Instructions ?Recorded ?Confirmed ?Type metoprolol tartrate 50 mg tablet 50 mg PO BID 12/05/24 12/06/24 History omeprazole 40 mg capsule,delayed 40 mg PO DAILY 12/05/24 12/06/24 History release trazodone 50 mg tablet 100 mg PO HS 12/05/24 12/06/24 History aspirin 81 mg tablet,delayed 81 mg PO DAILY 30 days #30 tabs 12/08/24 Rx release atorvastatin 40 mg tablet 40 mg PO HS 30 days #30 tabs 12/08/24 Rx empagliflozin 25 mg tablet 25 mg PO DAILY 30 days #30 tabs 12/08/24 Rx (Jardiance) prasugrel HCl 10 mg tablet 10 mg PO DAILY 30 days #30 tabs 12/08/24 Rx sacubitril 49 mg-valsartan 51 mg 1 tab PO BID #60 tabs 12/08/24 Rx tablet New Prescriptions to Start Prescriptions: Timbo Rivera James empagliflozin [Jardiance] Timbo Recinos prasugrel HCl Timbo Recinos sacubitril-valsartan Timbo Recinos Allergies Allergy/AdvReac Type Severity Reaction Status Date / Time No Known Allergies Allergy Verified 12/05/24 18:16 Discharge Plan Disposition Patient Disposition: Home, Self-Care Condition: Fair Discharge Order Discharge Orders: Discharge Order (Routine); Ordered 12/08/24 Ordered By: Timbo Recinos Follow up Plan Follow up with: Shekhar Luu MD [Staff Physician] - Enter time for follow up Prescriptions/Medication Reconciliation: New atorvastatin 40 mg Tablet 40 mg PO HS 30 Days Qty: 30 0RF aspirin 81 mg Tablet,Delayed Release (Dr/Ec) 81 mg PO DAILY 30 Days Qty: 30 0RF prasugrel HCl 10 mg Tablet 10 mg PO DAILY 30 Days Qty: 30 0RF Jardiance 25 mg Tablet 25 mg PO DAILY 30 Days Qty: 30 0RF sacubitril-valsartan 49-51 mg tablet 1 tab PO BID Qty: 60 0RF Continued trazodone 50 mg tablet 100 mg PO HS Patient Comments: TAKE ONE TO TWO TABLETS BY MOUTH EVERY DAY AT BEDTIME omeprazole 40 mg capsule,delayed release(DR/EC) 40 mg PO DAILY Patient Comments: TAKE 1 CAPSULE BY MOUTH DAILY metoprolol tartrate 50 mg tablet 50 mg PO BID Patient Comments: TAKE 1 TABLET BY MOUTH TWICE DAILY DIRECTED Discontinued pioglitazone 15 mg tablet 15 mg PO DAILYDM Patient Comments: TAKE 1 TABLET BY MOUTH EVERY DAY amlodipine 5 mg tablet 5 mg PO DAILY Patient Comments: TAKE ONE TABLET BY MOUTH ONCE DAILY Problem Reconciliation Problems Reviewed?: Yes Patient Discharge Instructions ACTIVITY: Continue current activity DIET: continue same diet and low fat, low cholesterol Patient Instructions: DI for Heart Attack, DI for Cardiac Catheterization, DI for Surgical Site Infection Print Language: [place]azight Providers Primary Care Provider: Mannie Mcdaniel Admit Provider: Timbo Recinos Attending Provider: Timbo Recinos
--- NOTE | 2024-12-08 09:54 | EXP.CARD.CON ---
History of Present Illness History of Present Illness Consult date: 12/08/24 Requesting physician: Timbo Recinos Consult reason: chest pain Chief complaint: chest pain, stemi History of present illness: This is a 59-year-old white male with past medical history of hypertension and diabetes who presented as a transfer from [facility] for STEMI. Patient underwent successful stenting of the mid LAD with 1 EVELYNE on 12/05/2024 and returned back to [facility] on 12/06 after he developed return of chest pain and was found to have in-stent thrombosis. Patient denies chest pain or shortness of breath since second heart cath. Patient does report some mild burning to right inner thigh. [facility] Disclaimer: The information contained in this section may have been updated after the patient was seen, as this information can be updated by other users. Medical History (Updated 12/08/24 @ 10:10 by Timbo Recinos MD) Diabetes type 2 Hypertension Surgical History (Updated 12/05/24 @ 20:35 by Misty Castelan RN) History of shoulder surgery History of hernia repair History of cholecystectomy Social History (Updated 12/05/24 @ 23:08 by EMIL Baeza) Smoking Status: Current every day smoker tobacco type: cigarettes packs per day: 1 years smoked: 7 alcohol intake: never current occupational status: employed Travel in the last 8 weeks: None Contact w/someone who lives/traveled outside [place] past 30 days?: No Exposure to someone with infectious disease in past 14 days?: No Do you have a fever (greater than 100.4 F or 38 C)?: No Have you tested positive for COVID-19: No Exposed to someone with COVID-19 in past 14 days?: No Do you have a sore throat?: No Do you have a cough?: No Do you have any weakness?: No Are you experiencing any nausea/vomitting?: No Do you have any diarrhea?: No Are you experiencing any unusual bleeding?: No Do you have any muscle aches/pain?: No Do you have any abdominal pain?: No Are you experiencing loss of taste or smell?: No Review of Systems Review of Systems Review of systems:: pertinent systems reviewed and negative unless documented below *Cardiovascular Cardiovascular: Reports chest pain and Reports dyspnea on exertion *Respiratory Respiratory: Reports dyspnea on exertion Exam Data for Last 24 hours Vital signs and Labs for Last 24 Hours: Temp Pulse Resp BP Pulse Ox O2 Del Method 97.6 F 89 16 142/79 H 95 Room Air 12/08/24 08:00 12/08/24 08:00 12/08/24 08:00 12/08/24 08:00 12/08/24 08:00 12/08/24 08:45 Laboratory Results - last 24 hr 12/07/24 11:18: POC Glucose 113 H 12/07/24 16:30: POC Glucose 122 H 12/07/24 20:41: POC Glucose 128 H 12/08/24 05:26: POC Glucose 138 H 12/08/24 06:03: WBC 11.9 H, RBC 5.09, Hgb 14.9, Hct 44.6, MCV 87.6, MCH 29.3, MCHC 33.4, RDW 14.2, Plt Count 273, MPV 10.6 H, Neut % (Auto) 69.0, Lymph % (Auto) 16.4, [place] % (Auto) 11.1 H, Eos % (Auto) 2.2, Baso % (Auto) 0.8, Neut # (Auto) 8.2 H, Lymph # (Auto) 2.0, [place] # (Auto) 1.3 H, Eos # (Auto) 0.3, Baso # (Auto) 0.1, Sodium 136, Potassium 3.7, Chloride 101, Carbon Dioxide 23, Anion Gap 15.7 H, BUN 18 D, Creatinine 0.90, Estimated Creat Clear 129, Estimated GFR 87, Est GFR ( Amer) 105, Glucose 117 H, Calcium 9.2, Magnesium 1.8 D, Total Bilirubin 2.3 H, AST 47 D, ALT 24, Alkaline Phosphatase 130 H, Total Protein 7.4, Albumin 3.9, Globulin 3.5 H, Albumin/Globulin Ratio 1.1 I & O for Last 24 hours: Intake & Output 12/05/24 12/06/24 12/07/24 12/08/24 23:59 23:59 23:59 23:59 Intake Total 1720 / 1720 1010 / 1130 540 / 540 Output Total 1200 / 1200 4180 / 4380 550 / 550 0 / 0 Balance -1200 / -1200 -2460 / -2660 460 / 580 540 / 540 Weight 236 lb 8 oz 223 lb 1.6 oz 222 lb 5 oz Constitutional Constitutional: no acute distress *Routine Respiratory Exam Respiratory: Present CTA bilaterally and symmetric chest movement *Routine Cardiovascular Exam Cardiovascular: Present RRR, Normal S1 and Normal S2 *Routine Abdominal Exam Abdominal: Present soft and normoactive bowel sounds; Absent tenderness *Routine Extremities Exam Extremities: Present full ROM and normal capillary refill; Absent edema Comments: Right groin site: Bruising and mild tenderness noted. No erythema present. Strong pedal pulses noted. *Routine Skin Exam Skin: Present intact, dry and warm Detailed Neck Exam: Thyroids Thyroid: Absent bruit Meds Home Medications and Allergies Home Medications ?Medication ?Instructions ?Recorded ?Confirmed ?Type metoprolol tartrate 50 mg tablet 50 mg PO BID 12/05/24 12/06/24 History omeprazole 40 mg capsule,delayed 40 mg PO DAILY 12/05/24 12/06/24 History release trazodone 50 mg tablet 100 mg PO HS 12/05/24 12/06/24 History aspirin 81 mg tablet,delayed 81 mg PO DAILY 30 days #30 tabs 12/08/24 Rx release atorvastatin 40 mg tablet 40 mg PO HS 30 days #30 tabs 12/08/24 Rx empagliflozin 25 mg tablet 25 mg PO DAILY 30 days #30 tabs 12/08/24 Rx (Jardiance) prasugrel HCl 10 mg tablet 10 mg PO DAILY 30 days #30 tabs 12/08/24 Rx sacubitril 49 mg-valsartan 51 mg 1 tab PO BID #60 tabs 12/08/24 Rx tablet New Prescriptions to Start Prescriptions: Timbo Rivera atorvastatin Timbo Recinos empagliflozin [Jardiance] Timbo Recinos prasugrel HCl Timbo Recinos sacubitril-valsartan Timbo Recinos Allergies Allergy/AdvReac Type Severity Reaction Status Date / Time No Known Allergies Allergy Verified 12/05/24 18:16 Assessment and Plan *Assessment and plan (1) STEMI (ST elevation myocardial infarction): Status: Acute Category: Medical Code(s): I21.3 - ST elevation (STEMI) myocardial infarction of unspecified site (2) Hypertension: Status: Acute Category: Medical Code(s): I10 - Essential (primary) hypertension (3) Diabetes: Status: Acute Category: Medical Code(s): E11.9 - Type 2 diabetes mellitus without complications (4) CAD (coronary artery disease): Status: Acute Category: Medical Code(s): I25.10 - Atherosclerotic heart disease of [place] coronary artery without angina pectoris (5) Obesity (BMI 30.0-34.9): Status: Chronic Category: Medical Code(s): E66.811 - Obesity, class 1 Plan CAD Stemi In-stent thrombosis Underwent successful PCI with EVELYNE x 1 to LAD followed by repeat cath for in-stent thrombosis. Please see cath report Continue DAPT with aspirin 81 mg and Effient 10 mg daily LDL goal less than 55, LDL is 97. Continue Lipitor 80 mg p.o. nightly Continue metoprolol tartrate 50 mg p.o. twice daily Preliminary echo shows a normal EF with no significant valvular stenosis or regurg noted. Official read is pending Preliminary arterial ultrasound of right lower extremity is negative for pseudoaneurysm Diabetes mellitus Continue Jardiance 25 mg p.o. daily Hypertension Increase Entresto to 49/51 mg p.o. twice daily and continue metoprolol. Stop amlodipine CV summary 12/08/2024: Patient is CV stable for discharge home. Please have patient continue below listed medications and follow-up in cardiology clinic in 1 week for reevaluation. Cardiac meds: Aspirin 81 mg p.o. daily Effient 10 mg p.o. daily Lipitor 80 mg p.o. daily Metoprolol tartrate 50 mg p.o. twice daily Jardiance 25 mg p.o. daily Entresto 49/51 mg p.o. twice daily
--- NOTE | 2024-12-08 10:04 | CA_ITS ---
FINAL REPORT CLINICAL HISTORY: Heart cath x 2 on 12/06/24 with groin access both times. Stents deployed. HTN, DM, Smoker FINDINGS: DUPLEX DOPPLER LOWER EXTREMITY TECHNIQUE: Axial and color Doppler waveform evaluation of the right common femoral artery was performed. FINDINGS: There is no evidence of right common femoral thrombosis or pseudoaneurysm. IMPRESSION: No evidence of right common femoral thrombosis or pseudoaneurysm. Reviewed, Interpreted and Dictated by Galindo Baron MD Transcribed by Leeanna Benítez Authenticated and [facility]
[2024-12-08 11:33] LABS: POC Glucose,Bedside 139 (70-110)
[2024-12-08 11:54] VITALS: BP 128/85; PULSE 79; RESP 16; TEMP 36.4
[2024-12-08 12:00] VITALS: PULSE 80
--- NOTE | 2024-12-08 20:06 | CA_ITS ---
APPROVED REPORT EXAM: Comprehensive 2D, Doppler, and color-flow Echocardiogram Transition Mgr: Poppy Machuca RDCS Ht: 5 ft 10 in Wt: 236lbs BSA: 2.24 BP: 126/77 mmHg Indications: CP.STEMI,STENTS PLACED 12/06/24 TDS M-Mode Dimensions RVDd 1.83 cm (0.9-2.6) LA Diam 4.39 cm (1.9-4.0) LVDd 5.78 cm (3.5-5.7) LVDs 4.33 cm (3.5-5.7) IVSd 0.89 cm (0.6-1.1) PWd 0.98 cm (0.6-1.1) EF (Teich) 48.90% FS 25.10% EDV (Teich) 165.20 mL TAPSE 2.11 (<1.7) ESV (Teich) 84.40 mL LV Diastology E Decel Time 230 (160-240 msec) E/A Ratio 0.8 Mitral Valve MV E Max Gordon. 71.0 (40-130 cm/s) MV A Velocity 84.0 (40-130 cm/s) E/A Ratio 0.85 MV PHT 67.0 ms Left Ventricle The left ventricle is normal size. The left ventricular systolic function is normal. The left ventricular ejection fraction is within the normal range. There is increased LV wall thickness. There is mild hypokinesis of the mid to distal septal LV cool. Transmitral Doppler flow pattern suggests impaired LV relaxation. LVEF is 55%. Right Ventricle The right ventricle is normal size. The right ventricular systolic function is normal. Atria The left atrium size is normal. The right atrium size is normal. There is no Doppler evidence of interatrial shunt. Aortic Valve The aortic valve is mildly thickened. There is no aortic valvular stenosis. No aortic regurgitation is present. Mitral Valve The mitral valve is normal in structure. No evidence of mitral valve stenosis. There is no mitral valve regurgitation noted. Tricuspid Valve Tricuspid valve is grossly normal in structure and function. Trace tricuspid regurgitation. There is insufficient TR jet to estimate RVSP. Pulmonic Valve The pulmonary valve is normal in structure. Trace pulmonic regurgitation. Great Vessels The aortic root is normal in size. IVC is normal in size and collapses >50% with inspiration. Pericardium There is no pericardial effusion. Other Information Study Quality: Fair Conclusion Normal biventricular systolic function. Mild hypokinesis of the mid to distal septal LV cool. No significant valvular stenosis or regurgitation. Electronically signed by : Jennifer Luna MD 12/08/2024 11:53:10
--- NOTE | 2024-12-09 10:01 | SW/DCPLANNER ---
Spoke with patient on the phone. Patient stated that hes doing well just being a little weak. Patient stated that he is aware of his upcoming appointments. Patient stated that he was able to get his new medicine picked up. Patient denies any concerns or questions at this time. Katherine NINA Cook Manager
--- NOTE | 2024-12-22 14:35 | SUR.PHASEII ---
12/05/241919 phase II- radial site w/radial band in place, right femoral site- perclose, vitals- 132/79, p-71, rr-20, sat-93%RA hr-80 0.20,0.08,0.34-nsr 12/05/241914 137/88, hr-93, rr-16, sat-96% ra 2+ pulses, femoral site cdi, rt radial band in place-no issues noted
== END 2024-12-08 14:56 | disposition home or self-care (01) | DRG 228 ==
PROVIDERS: Internal Medicine; Nurse Practitioner Acute Care; Admitting Provider Internal Medicine Adolescent Medicine; PCP Internal Medicine Nephrology; Visit Provider Internal Medicine Adolescent Medicine
PROC: 027034Z Dilation of Coronary Artery, One Artery with Drug-eluting Intraluminal Device, Percutaneous Approach (ICD-10-PCS; principal; 2024-12-05 18:30)
PROC: 02C00ZZ Extirpation of Matter from Coronary Artery, One Artery, Open Approach (ICD-10-PCS; principal; 2024-12-06 02:25)
DX: T82.855A Stenosis of coronary artery stent, initial encounter (principal); I21.02 ST elevation (STEMI) myocardial infarction involving left anterior descending coronary artery; I50.20 Unspecified systolic (congestive) heart failure; I25.10 Atherosclerotic heart disease of native coronary artery without angina pectoris; F17.210 Nicotine dependence, cigarettes, uncomplicated; E11.9 Type 2 diabetes mellitus without complications; Z79.84 Long term (current) use of oral hypoglycemic drugs; E66.811 Obesity, class 1; Z68.31 Body mass index [BMI] 31.0-31.9, adult; Y71.2 Prosthetic and other implants, materials and accessory cardiovascular devices associated with adverse incidents; I11.0 Hypertensive heart disease with heart failure; Z79.899 Other long term (current) drug therapy; I77.1 Stricture of artery
CPT/HCPCS: 36415; 80048; 80053; 80061; 82962; 83036; 83735; 84100; 85025; 85347; 92928; 92973; 93005; 93306; 93458; 93926; 99152; 99153; C1725; C1760; C1769; C1874; C1894; C9600; J1200; J1644; J2250; J2270; J3010; J3475; Q9967

== ENCOUNTER 2025-01-28 09:51 | Outpatient (CLI) | payer BC, SELFPAY ==
[2025-01-28 10:57] LABS: Basophils # 0.1 K/mm3 (0-0.2); Basophils % 0.9 % (0.1-2.0); Eosinophils # 0.3 Kmm3 (0.0-0.4); Eosinophils % 2.3 % (0.1-12.0); Hematocrit 47.7 % (42.0-52.0); Hemoglobin 16.3 g/dL (14.1-18.0); Immature Granulocytes # 0.09 10^3uL; Immature Granulocytes % 0.8 %; Lymphocytes # 2.1 K/mm3 (0.7-4.5); Lymphocytes % 17.8 % (10-50); Mean Corpuscular HGB Conc 34.2 g/dL (31.8-35.4); Mean Corpuscular Hemoglobin 29.7 pg (27.0-31.2); Mean Platelet Volume 10.3 fl (7.4-10.4); Monocytes # 1.4 K/mm3 (0.1-1.0); Monocytes % 12.2 % (1.7-9.3); Neutrophils # 7.6 K/mm3 (1.8-7.8); Nucleated Red Blood Cells # 0 10^3/uL; Nucleated Red Blood Cells % 0 %; Platelet Count 340 K/mm3 (142-424); Red Blood Count 5.48 M/mm3 (4.60-6.20); Red Cell Distribution Width 13.4 % (11.5-17.5); Red Cell Distribution Width-SD 43.4 fL; White Blood Count 11.6 K/mm3 (4.8-10.8)
[2025-01-28 11:10] LABS: Hemoglobin A1C 7.1 % (4.0-6.0)
[2025-01-28 11:25] LABS: Alanine Aminotransferase 28 U/L (12-78); Albumin Level 4.8 g/dl (3.5-5.0); Alkaline Phosphatase 134 U/L (38-126); Anion Gap 13.3 mEq/L (5-15); Aspartate Amino Transferase 34 U/L (17-59); Bilirubin,Direct 0.2 mg/dl (0.0-0.4); Bilirubin,Indirect 1.3 mg/dL (0.0-0.9); Bilirubin,Total 1.5 mg/dl (0.2-1.3); Bilirubin,Unconjugated 1.3 mg/dL (0.0-1.1); Blood Urea Nitrogen 19 mg/dl (9-20); Calcium 9.8 mg/dl (8.4-10.2); Carbon Dioxide 31 mmol/L (22.0-30.0); Chloride 101 mmol/L (98-107); Chol/HDL Ratio 3.7 (1-3.5); Cholesterol 81 mg/dl (140-200); Estimated Glomerular Filt Rate 69 ml/min (>60); GFR (African American) 83 ML/MIN (>60); Glucose 166 mg/dl (74-100); HDL Cholesterol 22 mg/dl (40-60); Magnesium 1.8 mg/dl (1.6-2.3); Potassium 4.3 mmoL/L (3.5-5.1); Sodium 141 mmol/L (136-145); Total Protein,Serum 7.8 g/dl (6.3-8.2); Triglycerides 123 mg/dl (30-150); VLDL Cholesterol 25 mg/dL (0-40)
[2025-01-28 11:37] LABS: Direct LDL Cholesterol 40.72 mg/dL (100-129)
[2025-01-28 11:58] LABS: Thyroid Stimulating Hormone 1.21 uIU/mL (0.465-4.68)
[2025-01-29 08:14] LABS: Testosterone,Total 466 ng/dL (264-916)
== END 2025-01-28 23:59 | disposition home or self-care (01) ==
LOC: LAB 09:52
PROVIDERS: PCP Family Medicine; Visit Provider Nurse Practitioner
DX: I25.10 Atherosclerotic heart disease of native coronary artery without angina pectoris (principal); I10 Essential (primary) hypertension; E11.9 Type 2 diabetes mellitus without complications; R06.81 Apnea, not elsewhere classified
CPT/HCPCS: 36415; 80048; 80061; 80076; 83036; 83735; 84403; 84439; 84443; 85025

== ENCOUNTER → 2025-02-13 12:04 | Outpatient (CLI) | payer BC, SELFPAY ==
--- OUTSIDE RECORDS SUMMARY | 2025-02-13 12:06 | XMS_ITS | Clinical Summary ---
Author Organization Healthcare Address [address] 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 Name Role Phone Timbo Recinos MD Primary Care Provider [phone] Social History Tobacco Use Types Packs/Day Years Used Date Smoking Tobacco: Never Assessed Sex and Gender Information Value Date Recorded Sex Assigned at Not on file Legal Sex Male 4:14 PM EDT Gender Identity Not on file Sexual Orientation Not on file Plan of Treatment Upcoming Encounters Date Type Department Care Team ([facility] st Contact Info) Description 05/29/2025 10:00 AM EDT Office Visit [facility] [address] [place] [phone] 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, 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 [address] [address] Health Maintenance Due Date Last Done Comments [facility]-Depression Screening 1967 [facility]-HIV Screening 1967 [facility]-Hepatitis C Screening 1967 [facility]-Infant/Child/Adol SDOH Screenings 1967 [facility]- SDOH Screenings 1985 [facility]-Adult SDOH Screenings 1985 [facility]-DTaP,Tdap,and Td Vaccine s (1 - Tdap) 1986 CT Colonography 2012 Colonoscopy 2012 FIT-DNA 2012 FIT 2012 FOBT 2012 Sigmoidoscopy 2012 [facility]-Colorectal Cancer Screening 2012 [facility]-Pneumococcal Vaccine: 50 + Years (1 of 1 - PCV) 2017 [facility]-Zoster Vaccines (1 of 2) 2017 [id number] Vaccine (3 season) 2024 10/08/2020, 09/10/2020 [facility]-Influenza Vaccine (Seas[place] n Ended) 2025 06/05/2018, 06/20/2017 [facility]-Hepatitis B Vaccines Completed 000, 05/20/1999, 04/22/1999 HPV Vaccines Aged Out No longer eligi ble based on patient's age to complete this topic [facility]-HIB Vaccines Aged Out No longer e ligible based on patient's age to complete this topic [facility]-Hepatitis A Vaccines Aged Out No longer eligible based on patient's age to complete this topic [facility]-IPV Vaccines Aged Out No longer e ligible based on patient's age to complete this topic [facility]-Rotavirus Vaccines Aged Out No lo nger eligible based on patient's age to complete this topic Care Teams Drying Can Worker Relationship Specialty Start Date End Date Timbo Recinos MD [address] [place] [address] PCP - General 12/30/24
== END ==
LOC: SL 12:04
PROVIDERS: PCP Nurse Practitioner; Visit Provider Nurse Practitioner
DX: I10 Essential (primary) hypertension (principal); I25.10 Atherosclerotic heart disease of native coronary artery without angina pectoris; E11.9 Type 2 diabetes mellitus without complications; R53.83 Other fatigue; G47.33 Obstructive sleep apnea (adult) (pediatric); G47.36 Sleep related hypoventilation in conditions classified elsewhere
CPT/HCPCS: G0399